=== PATIENT | female | born 1990 | race Caucasian/White ===

== ENCOUNTER 2019-12-08 07:26 | Day surgery (SDC) | payer BC ==
[~2019-12-08 07:26] MED LIST: Lactated Ringers 1,000 ML IV SCH; Lidocaine 1%/Sod Bicarbonate in NS 8.4% 1 ML Syringe IDERM PRN; Sodium Chloride 0.9% 10 ML Syringe FLUSH PRN
[2019-12-08] MEDS ORDERED: Bupivacaine 0.5% 30 ML SDV ONE (08:41)
--- NOTE | 2019-12-08 08:58 | PCM.PREANE ---
Preanesthetic Assessment - Anesthesia/Transfusion/Family Hx Anesthesia History: Prior Anesthesia Without Reaction Family History of Anesthesia Reaction: No Transfusion History: No Prior Transfusion(s) Intubation History: Unknown - Review of Systems General: No Symptoms Pulmonary: No Symptoms (Smoker: less than 1 ppd for 15 years) Cardiovascular: No Symptoms Gastrointestinal: No Symptoms (pelvic pain-12/27), Constipation Neurological: No Symptoms Other: Reports: Easy Bruising, Sinus Problem (allergic rhinitis), Anxiety - Physical Assessment NPO Status Date: 12/08/19 NPO Status Time: 20:00 Vital Signs: Last Vital Signs Temp 36.5 C 12/08/19 07:58 Pulse 74 12/08/19 07:58 Resp 16 12/08/19 07:58 BP 98/69 12/08/19 07:58 Pulse Ox 96 12/08/19 07:58 Height: 1.65 m Weight: 64.4 kg ASA Class: 2 Mental Status: Alert & Oriented x3 Airway Class: Mallampati = 2 Dentition: Reports: Normal Dentition (braces noted upper and lower), Caries Thyro-Mental Finger Breadths: 3 Mouth Opening Finger Breadths: 3 ROM/Head Extension: Full Lungs: Clear to Auscultation, Normal Respiratory Effort Cardiovascular: Regular Rate, Regular Rhythm, No Murmurs - Lab Values: Laboratory Last Values Urine Color Yellow (Yellow) 12/08/19 07:34 Urine Appearance Clear (Clear) 12/08/19 07:34 Urine pH 6.0 (5.0-8.0) 12/08/19 07:34 Ur Specific [place] > or = 1.030 (1.005-1.030) 12/08/19 07:34 Urine Protein Negative (Negative) 12/08/19 07:34 Urine Glucose (UA) Negative (Negative) 12/08/19 07:34 Urine Ketones Negative (Negative) 12/08/19 07:34 Urine Occult Blood Negative (Negative) 12/08/19 07:34 Urine Nitrite Negative (Negative) 12/08/19 07:34 Urine Bilirubin Negative (Negative) 12/08/19 07:34 Urine Urobilinogen 0.2 (0.2-1.0) 12/08/19 07:34 Ur Leukocyte Esterase Negative (Negative) 12/08/19 07:34 Urine RBC Not seen /hpf (0-5) 12/08/19 07:34 Urine WBC Not seen /hpf (0-5) 12/08/19 07:34 Ur Squamous Epith Cells 5-10 /hpf (0-5) H 12/08/19 07:34 Urine Bacteria Few /hpf (FEW) 12/08/19 07:34 Urine Mucus Few /hpf (FEW) 12/08/19 07:34 Urine HCG, Qual Negative (NEGATIVE) 12/08/19 07:34 Above/all labs reviewed and noted and within acceptable ranges to proceed with scheduled procedure. - Allergies Allergies/Adverse Reactions: Allergies Allergy/AdvReac Type Severity Reaction Status Date / Time No Known Allergies Allergy Verified 12/08/19 07:57 - Anesthesia Plan Pre-Op Medication Ordered: None - Acknowledgements Anesthesia Type Planned: General Anesthesia Pt an Appropriate Candidate for the Planned Anesthesia: Yes Alternatives and Risks of Anesthesia Discussed w Pt/Guardian: Yes Pt/Guardian Understands and Agrees with Anesthesia Plan: Yes PreAnesthesia Questionnaire HEENT History: Reports: Allergic Rhinitis, Impaired Vision Cardiovascular History: Reports: None Respiratory History: Reports: None Gastrointestinal History: Reports: None Genitourinary History: Reports: None 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, Musculoskeletal History: Reports: None Neurological History: Reports: None Psychiatric History: Reports: Anxiety Endocrine/Metabolic History: Reports: None Hematologic History: Reports: None Immunologic History: Reports: None Oncologic (Cancer) History: Reports: None Dermatologic History: Reports: Cellulitis - Infectious Disease History Infectious Disease History: Reports: None - Past Surgical History Head Surgeries/Procedures: Reports: None HEENT Surgical History: Reports: Tonsillectomy Respiratory Surgical History: Reports: None GI Surgical History: Reports: Cholecystectomy Female Surgical History: Reports: Hysterectomy Endocrine Surgical History: Reports: None Neurological Surgical History: Reports: None Musculoskeletal Surgical History: Reports: None Oncologic Surgical History: Reports: None Dermatological Surgical History: Reports: None - SUBSTANCE USE Smoking Status *Q: Former Smoker Recreational Drug Use History: No - HOME MEDS Home Medications: Home Meds Citalopram Hydrobromide [Celexa] 20 mg PO DAILY 12/07/19 [History] L.acidoph,Paracasei, B.lactis [Probiotic] 1 cap PO DAILY 12/07/19 [History] Multivitamin [Poly-Vitamin] 1 tab PO DAILY 12/07/19 [History] Vit C/Ascorb Sod/Multivit-Min [Emergen-C 500 mg Chewable Tab] 500 mg PO DAILY 12/07/19 [History] - CURRENT (IN HOUSE) MEDS Current Meds: Current Medications Lactated Ringer's (Ringers, Lactated) 1,000 mls @ 125 mls/hr IV ASDIRECTED DELIA Stop: 12/08/19 23:00 Last Admin: 12/08/19 07:56 Dose: 125 mls/hr Documented by: Lidocaine/Sodium Bicarbonate (Buffered Lidocaine 1% In Ns 8.4%) 0.25 ml IDERM ONETIME PRN PRN Reason: Prior to IV Start Stop: 12/08/19 18:00 Last Admin: 12/08/19 07:56 Dose: 0.25 ml Documented by: Sodium Chloride (Saline Flush) 10 ml FLUSH ASDIRECTED PRN PRN Reason: Keep Vein Open Stop: 12/08/19 18:00 Discontinued Medications Bupivacaine HCl (Marcaine 0.5%) Confirm Administered Dose 30 ml .ROUTE .STK-MED ONE Stop: 12/08/19 08:42
[2019-12-08] MEDS ORDERED: Propofol 200 MG/20 ML SDV ONE (09:13)
[2019-12-08] MEDS ORDERED: fentaNYL 250 MCG/5 ML SDV ONE (09:13)
[2019-12-08] MEDS ORDERED: Midazolam 1 MG/ML 2 ML SDV ONE (09:13)
[2019-12-08] MEDS ORDERED: Lidocaine 1% 4 ML ONE (09:15)
[2019-12-08] MEDS ORDERED: Succinylcholine/Sod PF 100 MG/5 ML SYRINGE IV ONE (09:17)
[2019-12-08] MEDS ORDERED: Ondansetron 4 MG/2 ML SDV ONE (09:50)
[2019-12-08] MEDS ORDERED: Ketorolac 30 MG/ML SDV ONE (10:00)
[2019-12-08] MEDS ORDERED: fentaNYL 100 MCG/2 ML SDV IVPUSH PRN (10:20)
[2019-12-08] MEDS ORDERED: HYDROmorphone 0.5 MG/0.5 ML Syringe IVPUSH PRN (10:20)
[2019-12-08] MEDS ORDERED: Lactated Ringers 1,000 ML ONE (10:27)
--- NOTE | 2019-12-08 10:37 | PCM.POSTAN ---
POST ANESTHESIA ASSESSMENT - MENTAL STATUS Mental Status: Somnolent - VITAL SIGNS Vital Signs: Last Vital Signs Temp 97.3 F 12/08/19 10:28 Pulse 89 12/08/19 10:28 Resp 17 12/08/19 10:28 BP 93/56 L 12/08/19 10:28 Pulse Ox 95 12/08/19 10:28 - RESPIRATORY Respiratory Status: Respiratory Rate WNL, Airway Patent (oral a/w #90), O2 Saturation Stable, Supplemental Oxygen - CARDIOVASCULAR CV Status: Pulse Rate WNL, Blood Pressure Stable - GASTROINTESTINAL GI Status: No Symptoms - PAIN Pain Score: 0 - POST OP HYDRATION Hydration Status: Adequate & Stable
--- NOTE | 2019-12-08 10:40 | PCM.OPNOTE ---
- General Post-Op/Procedure Note Date of Surgery/Procedure: 12/08/19 Operative Procedure(s): Laparoscopy with biopsies on the ovary and pelvic peritoneum Findings: Grossly normal-appearing peritoneum with one area near the left broad ligament that was biopsied. Normal-appearing peritoneum on the anterior, lateral and posterior valdes of the pelvis. Left ovary with multiple small clear cystic structure suspected to be endometriosis. Right ovary grossly normal in appearance. Normal-appearing appendix. Grossly normal-appearing liver and upper abdomen. Pre Op Diagnosis: Female pelvic pain, endometriosis and history of ovarian cysts Post-Op Diagnosis: Same Anesthesia Technique: General ET Tube Primary Surgeon: Stef Bernardo Anesthesia Provider: Alban Arndt Fruit Checker: Manish Haas Fruit Checker: Sol Juarez ([place] Student) Reason Fruit Checker Was Necessary: Patient safety and reduction of morbidity and mortality Role of Fruit Checker: Use of laparoscopic instruments during the case. Pathology: Left pelvic sidewall peritoneal biopsy, right ovary biopsy, left ovary biopsy Fluid Replacement, Intraop: 1,000 Output, Urine Amount: 125 EBL in mLs: 10 Complications: None Condition: Good Free Text/Narrative:: The patient was seen in the preoperative holding area and risks, benefits, indications, and alternatives of the procedure were reviewed with the patient and she desired to proceed with a diagnostic laparoscopy, fulguration of endometriosis, possible lysis of adhesions, possible ovarian cystectomy and possible oophorectomy. Consents were reviewed. The patient was taken back to the OR and given general anesthesia with an endotracheal tube which was placed without difficulty. She was placed in dorsal supine position. A Friedman catheter was placed without difficulty. She was prepped and draped in normal sterile fashion. Attention was then turned to her umbilicus where a previous laparoscopic scar was visualized. This was injected with 0.5% Marcaine and a 5 mm stab incision was made with a scalpel and a Veress needle was then inserted through the incision. The gas was turned on, with an opening pressure of 2 mmHg. Pneumoperitoneum was continued until 13 mmHg pressure. A 5 mm trocar was then inserted under direct visualization through the incision without difficulty. A global view of the abdomen was taken and noted to be overall free of adhesions. Attention was then turned to the left lower quadrant area where she had a previous laparoscopy scar. This area was injected with 0.5% Marcaine and a 5 mm stab incision was made with a scalpel. A 5 mm trocar was then inserted under direct visualization with the laparoscope. A global view of the abdomen was then taken and noted to be overall normal in appearance. The intestines, visualized portions of the liver and upper abdomen were overall normal appearance. The pelvis was then closely inspected for any areas of endometriosis and was noted to be free of any gunpowder lesions or clear endometriosis cysts. The left broad ligament area had a small abnormality that was biopsied and sent for pathology. The left ovary was inspected and noted to have clear endometriosis type cysts present near the base of the ovary at the IP ligament junction. The cysts were biopsied as well and sent for pathology. The right ovary was inspected and noted to be normal in appearance without any evidence of endometriosis. There was a small area with protrusion from the ovary that was biopsied and sent for pathology as well. The biopsy sites were hemostatic after the biopsy. The abdomen was then further explored and the appendix was visualized and appeared to be normal. The remainder of the abdomen was felt to be overall normal and the case was completed at this time. The gas was then evacuated from the peritoneum and trocars removed. These were closed using 4-0 Monocryl suture and Dermabond. The case was completed at this time and all instruments were removed. The Friedman catheter was discontinued at this time. The patient was awoken from general anesthesia and taken to the PACU for recovery in stable condition. She will be discharged to home once she is able to meet all postoperative milestones including tolerating small amount of oral intake and liquids, ambulate without difficulty, her pain controlled with oral medications and able to void without difficulty. She will follow-up in the clinic in 2 weeks or earlier as needed. Sponge, lap, needle, and instrument counts were correct x 2.
[2019-12-08] MEDS ORDERED: Acetaminophen/oxyCODONE 325-5 MG Tab PO SCH (11:30)
--- NOTE | 2019-12-08 12:12 | PCM48HPAN ---
Post Anesthesia Note - EVALUATION WITHIN 48HRS OF ANESTHETIC Vital Signs in Normal Range: Yes Patient Participated in Evaluation: Yes Respiratory Function Stable: Yes Airway Patent: Yes Cardiovascular Function Stable: Yes Hydration Status Stable: Yes Pain Control Satisfactory: Yes Nausea and Vomiting Control Satisfactory: Yes Mental Status Recovered: Yes Vital Signs: Last Vital Signs Temp 97.5 F 12/08/19 11:30 Pulse 96 12/08/19 11:30 Resp 18 12/08/19 11:30 BP 94/77 12/08/19 11:30 Pulse Ox 93 L 12/08/19 11:30
== END 2019-12-08 13:19 | disposition home or self-care (01) ==
LOC: JD.SDS 07:26
PROVIDERS: ATTEND Obstetrics & Gynecology
DX: N83.8 Other noninflammatory disorders of ovary, fallopian tube and broad ligament (principal); N80.9 Endometriosis, unspecified; F17.210 Nicotine dependence, cigarettes, uncomplicated; Z79.899 Other long term (current) drug therapy
CPT/HCPCS: 49321; 81001; 81025; A9270; J0330; J1885; J2001; J2250; J2405; J2704; J3010; J3490; J7120; 00840

== ENCOUNTER 2019-12-20 18:03 | Emergency (ER) | payer BC ==
--- NOTE | 2019-12-20 18:20 | EDM.PDOC ---
ED HPI GENERAL MEDICAL PROBLEM - General Chief Complaint: Lower Extremity Injury/Pain Stated Complaint: L FOOT INJURY Time Seen by Provider: 12/20/19 18:15 Source of Information: Reports: Patient History Limitations: Reports: No Limitations - History of Present Illness INITIAL COMMENTS - FREE TEXT/NARRATIVE: The patient presents with left foot pain. She admits to being intoxicated last night and falling down some stairs. She hurt her left foot only. She did not hit her head or hurt her neck. Onset: Sudden Duration: Day(s): (Last night) Quality: Reports: Sharp Severity: Moderate Improves with: Reports: Immobilization Worsens with: Reports: Movement Context: Reports: Trauma (Fell down some steps) Associated Symptoms: Reports: No Other Symptoms Left Foot Pain Score (Numeric/FACES): 9 - Related Data Allergies Allergy/AdvReac Type Severity Reaction Status Date / Time No Known Allergies Allergy Verified 12/20/19 18:16 Home Meds: Home Meds Citalopram Hydrobromide [Celexa] 10 mg PO BEDTIME 12/07/19 [History] Multivitamin [Poly-Vitamin] 1 tab PO DAILY 12/07/19 [History] Past Medical History HEENT History: Reports: Allergic Rhinitis, Impaired Vision Cardiovascular History: Reports: None Respiratory History: Reports: None Gastrointestinal History: Reports: None Genitourinary History: Reports: None 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, Musculoskeletal History: Reports: None Neurological History: Reports: None Psychiatric History: Reports: Anxiety Endocrine/Metabolic History: Reports: None Hematologic History: Reports: None Immunologic History: Reports: None Oncologic (Cancer) History: Reports: None Dermatologic History: Reports: Cellulitis - Infectious Disease History Infectious Disease History: Reports: None - Past Surgical History Head Surgeries/Procedures: Reports: None HEENT Surgical History: Reports: Tonsillectomy Respiratory Surgical History: Reports: None GI Surgical History: Reports: Cholecystectomy Female Surgical History: Reports: Hysterectomy Endocrine Surgical History: Reports: None Neurological Surgical History: Reports: None Musculoskeletal Surgical History: Reports: None Oncologic Surgical History: Reports: None Dermatological Surgical History: Reports: None Social & Family History - Caffeine Use Caffeine Use: Reports: Soda Review of Systems - Review of Systems Review Of Systems: See Below Constitutional: Reports: No Symptoms Eyes: Reports: No Symptoms Ears: Reports: No Symptoms Nose: Reports: No Symptoms Mouth/Throat: Reports: No Symptoms Respiratory: Reports: No Symptoms Cardiovascular: Reports: No Symptoms GI/Abdominal: Reports: No Symptoms Musculoskeletal: Reports: Other (Left foot swelling and pain) ED EXAM, GENERAL - Physical Exam Exam: See Below Exam Limited By: No Limitations General Appearance: Alert, No Apparent Distress Ears: Normal External Exam Nose: Normal Inspection Head: Atraumatic, Normocephalic Neck: Normal Inspection Respiratory/Chest: No Respiratory Distress Extremities: Other (Edema and pain upon palpation to the left foot) Course - Vital Signs Last Recorded V/S: Last Vital Signs Temp 97 F 12/20/19 18:14 Pulse 81 12/20/19 18:14 Resp 16 12/20/19 18:14 BP 100/74 12/20/19 18:14 Pulse Ox 97 12/20/19 18:14 - Orders/Labs/Meds Orders: Active Orders 24 hr Category Date Time Status Durable Medical Equipment for Discharge [DME for Oth 12/20/19 19:20 Ordered Discharge] [COMM] Stat - Re-Assessments/Exams Free Text/Narrative Re-Assessment/Exam: 12/20/19 18:20 I have ordered an x-ray of her left foot. 12/20/19 19:22 The x-ray shows soft tissue swelling. No definite bony abnormality is seen. She cannot walk on it so I will get her a walking boot and crutches. Departure - Departure Time of Disposition: 19:25 Disposition: Home, Self-Care 01 Condition: Good Clinical Impression: Sprain of left foot Qualifiers: Encounter type: initial encounter Qualified Code(s): S93.602A - Unspecified sprain of left foot, initial encounter - Discharge Information *PRESCRIPTION DRUG MONITORING PROGRAM REVIEWED*: Not Applicable *COPY OF PRESCRIPTION DRUG MONITORING REPORT IN PATIENT MINDA: Not Applicable Referrals: PCP,None [Primary Care Provider] - Wily Little MD [Physician] - 1 Week Forms: ED Department Discharge Additional Instructions: Ice your foot for 15 minutes 3 times per day for 2 days. Elevate your foot as much as you can for 2 days. Take tylenol or motrin for pain. If that does not help, try the hydrocodone. Follow up with Dr Little. Please return if you are worse. Sepsis Event Note (ED) - Evaluation Sepsis Screening Result: No Definite Risk - Focused Exam Vital Signs: Vital Signs Temp Pulse Resp BP Pulse Ox 12/20/19 18:14 97 F 81 16 100/74 97 - My Orders Last 24 Hours: My Active Orders 12/20/19 19:20 Durable Medical Equipment for Discharge [DME for Discharge] [COMM] Stat - Assessment/Plan Last 24 Hours: My Active Orders 12/20/19 19:20 Durable Medical Equipment for Discharge [DME for Discharge] [COMM] Stat
--- NOTE | 2019-12-20 19:15 | CR ---
Left foot: 3 views left foot were obtained. Comparison: No previous left foot study. Soft tissue swelling is identified. Minimal bony density is noted off the cuboid bone which appears old. No acute fracture, dislocation or other bony abnormalities appreciated. Impression: 1. Soft tissue swelling. No definite bony abnormality is seen. If patient's symptoms are sufficient to warrant further evaluation, foot CT could be considered. Diagnostic code #3 This report was dictated in MDT
== END 2019-12-20 19:55 | disposition home or self-care (01) ==
LOC: JD.ED 18:03
DX: S93.602A Unspecified sprain of left foot, initial encounter (principal); Z79.899 Other long term (current) drug therapy; F41.9 Anxiety disorder, unspecified; W10.9XXA Fall (on) (from) unspecified stairs and steps, initial encounter
CPT/HCPCS: 73630-26-LT; 73630-LT; 99282; 99283-25

== ENCOUNTER 2020-01-29 19:30 | Emergency (ER) | payer BC ==
--- NOTE | 2020-01-29 20:10 | EDM.PDOC ---
ED HPI GENERAL MEDICAL PROBLEM - General Chief Complaint: Gastrointestinal Problem Stated Complaint: BLOOD IN STOOL Time Seen by Provider: 01/29/20 19:51 Source of Information: Reports: Patient History Limitations: Reports: No Limitations - History of Present Illness INITIAL COMMENTS - FREE TEXT/NARRATIVE: This is a 29-year-old female. Onset for the past 3 days with dark looking stools. She has not taken Pepto-Bismol. Then she is also had some bright red blood with her stool for the last couple of days as well. She pains of lower abdominal cramping and pain and it appears that the left side is worse than the right. She also complains of rectal pressure. Whenever she poops she says it toribio around her anus. She has been having small stools which is unusual for her but she does not have to strain to go. She has been taking MiraLAX 1-2 times a week. She denies any nausea and vomiting denies any fever. She has had a hysterectomy 1 year ago as well as a cholecystectomy. She still has her ovaries and she has a history of endometriosis and ovarian cyst. Due to the blood in her stool she comes to the ER for evaluation. Bilateral Lower Abdomen Pain Score (Numeric/FACES): 8 - Related Data Allergies Allergy/AdvReac Type Severity Reaction Status Date / Time No Known Allergies Allergy Verified 01/29/20 19:45 Home Meds: Home Meds Citalopram Hydrobromide [Celexa] 20 mg PO BEDTIME 12/07/19 [History] Multivitamin [Poly-Vitamin] 1 tab PO DAILY 12/07/19 [History] Past Medical History HEENT History: Reports: Allergic Rhinitis, Impaired Vision Other HEENT History: Wears glasses Cardiovascular History: Reports: None Respiratory History: Reports: None Gastrointestinal History: Reports: None Genitourinary History: Reports: None 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, Musculoskeletal History: Reports: None Neurological History: Reports: None Psychiatric History: Reports: Anxiety Endocrine/Metabolic History: Reports: None Hematologic History: Reports: Anemia Immunologic History: Reports: None Oncologic (Cancer) History: Reports: None Dermatologic History: Reports: Cellulitis - Infectious Disease History Infectious Disease History: Reports: None - Past Surgical History Head Surgeries/Procedures: Reports: None HEENT Surgical History: Reports: Adenoidectomy, Tonsillectomy Respiratory Surgical History: Reports: None GI Surgical History: Reports: Cholecystectomy Female Surgical History: Reports: Hysterectomy Endocrine Surgical History: Reports: None Neurological Surgical History: Reports: None Musculoskeletal Surgical History: Reports: None Oncologic Surgical History: Reports: None Dermatological Surgical History: Reports: None Social & Family History - Tobacco Use Smoking Status *Q: Current Every Day Smoker Years of Tobacco use: 10 Packs/Tins Daily: 0.5 - Caffeine Use Caffeine Use: Reports: Soda - Recreational Drug Use Recreational Drug Use: No ED ROS GENERAL - Review of Systems Review Of Systems: See Below Constitutional: Denies: Fever, Chills HEENT: Reports: No Symptoms Respiratory: Reports: No Symptoms Cardiovascular: Reports: No Symptoms Endocrine: Reports: No Symptoms GI/Abdominal: Reports: Abdominal Pain, Black Stool, Bloody Stool. Denies: Constipation, Diarrhea, Nausea, Vomiting : Denies: Dysuria Musculoskeletal: Reports: No Symptoms Skin: Reports: No Symptoms Neurological: Reports: No Symptoms Psychiatric: Reports: No Symptoms Hematologic/Lymphatic: Reports: No Symptoms ED EXAM, GI/ABD - Physical Exam Exam: See Below Exam Limited By: No Limitations General Appearance: Alert, WD/WN, No Apparent Distress Eyes: Bilateral: Normal Appearance Ears: Normal External Exam Nose: Normal Inspection Throat/Mouth: Normal Voice, No Airway Compromise Head: Normocephalic Neck: Supple Respiratory/Chest: No Respiratory Distress, Lungs Clear, Normal Breath Sounds Cardiovascular: Regular Rate, Rhythm, No Murmur GI/Abdominal Exam: Soft, Other (Bowel sounds are positive though they are decreased. She is tender in the lower abdomen but not the upper abdomen. In the lower abdomen she is very tender in the left lower quadrant and not so tender in the right lower quadrant. She does not have any rebound and there is no obvious guarding.) Rectal (Female) Exam: Normal Exam, Normal Rectal Tone, Heme - Stool, Other (Not see any obvious abnormalities of the rectum and there is no hemorrhoidal tags noted. I did obtain a small amount of stool that was heme-negative.). No: Black Stool, Bloody Stool, Hemorrhoids Back Exam: Full Range of Motion Extremities: Normal Inspection, Normal Range of Motion Neurological: Alert, Oriented Psychiatric: Normal Affect, Normal Mood Skin Exam: Warm, Dry Course - Vital Signs Last Recorded V/S: Last Vital Signs Temp 97.4 F 01/29/20 19:45 Pulse 74 01/29/20 19:45 Resp 14 01/29/20 19:45 BP 124/90 01/29/20 19:45 Pulse Ox 99 01/29/20 19:45 - Orders/Labs/Meds Orders: Active Orders 24 hr Category Date Time Status Sodium Chloride 0.9% [Normal Saline] 1,000 ml Med 01/29/20 20:15 Active IV ASDIRECTED Medication Orders Sodium Chloride (Normal Saline) 1,000 mls @ 500 mls/hr IV ASDIRECTED DELIA Last Admin: 01/29/20 20:28 Dose: 500 mls/hr Documented by: CHRIS Labs: Laboratory Tests 01/29/20 01/29/20 01/29/20 Range/Units 20:35 20:35 20:35 WBC 7.48 (3.98-10.04) K/mm3 RBC 4.71 (3.98-5.22) M/mm3 Hgb 15.3 (11.2-15.7) gm/dl Hct 43.4 (34.1-44.9) % MCV 92.1 (79.4-94.8) fl MCH 32.5 H (25.6-32.2) pg MCHC 35.3 (32.2-35.5) g/dl RDW Std Deviation 41.0 (36.4-46.3) fL Plt Count 225 (182-369) K/mm3 MPV 10.2 (9.4-12.3) fl Neut % (Auto) 56.5 (34.0-71.1) % Lymph % (Auto) 34.6 (19.3-51.7) % [place] % (Auto) 7.5 (4.7-12.5) % Eos % (Auto) 0.9 (0.7-5.8) Baso % (Auto) 0.4 (0.1-1.2) % Neut # (Auto) 4.22 (1.56-6.13) K/mm3 Lymph # (Auto) 2.59 (1.18-3.74) K/mm3 [place] # (Auto) 0.56 H (0.24-0.36) K/mm3 Eos # (Auto) 0.07 (0.04-0.36) K/mm3 Baso # (Auto) 0.03 (0.01-0.08) K/mm3 Sodium 138 (136-145) mEq/L Potassium 3.7 (3.5-5.1) mEq/L Chloride 100 (98-107) mEq/L Carbon Dioxide 29 (21-32) mEq/L Anion Gap 12.7 (5-15) BUN 11 (7-18) mg/dL Creatinine 0.7 (0.55-1.02) mg/dL Est Cr Clr Drug Dosing 101.48 mL/min Estimated GFR (MDRD) > 60 (>60) mL/min BUN/Creatinine Ratio 15.7 (14-18) Glucose 93 (74-106) mg/dL Calcium 9.1 (8.5-10.1) mg/dL Total Bilirubin 0.3 (0.2-1.0) mg/dL AST 15 (15-37) U/L ALT 26 (14-59) U/L Alkaline Phosphatase 36 L (46-116) U/L C-Reactive Protein 0.4 (<1.0) mg/dL Total Protein 7.6 (6.4-8.2) g/dl Albumin 4.2 (3.4-5.0) g/dl Globulin 3.4 gm/dL Albumin/Globulin Ratio 1.2 (1-2) Lipase 131 (73-393) U/L Urine Color Yellow (Yellow) Urine Appearance Clear (Clear) Urine pH 6.5 (5.0-8.0) Ur Specific [place] 1.015 (1.005-1.030) Urine Protein Negative (Negative) Urine Glucose (UA) Negative (Negative) Urine Ketones Negative (Negative) Urine Occult Blood Trace-intact H (Negative) Urine Nitrite Negative (Negative) Urine Bilirubin Negative (Negative) Urine Urobilinogen 0.2 (0.2-1.0) Ur Leukocyte Esterase Negative (Negative) Urine RBC 0-5 (0-5) /hpf Urine WBC 0-5 (0-5) /hpf Ur Squamous Epith Cells 5-10 H (0-5) /hpf Urine Bacteria Few (FEW) /hpf Urine Mucus Few (FEW) /hpf Meds: Medications Generic Name Dose Route Start Last Admin Trade Name Freq PRN Reason Stop Dose Admin Sodium Chloride 1,000 mls @ 500 mls/hr 01/29/20 20:15 01/29/20 20:28 Normal Saline IV 500 mls/hr ASDIRECTED DELIA Administration Discontinued Medications Generic Name Dose Route Start Last Admin Trade Name Araseli PRN Reason Stop Dose Admin Diatrizoate Meglum/Diatrizoate Sod 120 ml 01/29/20 21:53 01/29/20 22:05 Gastrografin 37% PO 01/29/20 21:54 120 ml ONETIME ONE Administration Iopamidol 100 ml 01/29/20 21:53 01/29/20 22:05 Isovue-300 (61%) IVPUSH 01/29/20 21:54 100 ml ONETIME ONE Administration Sodium Chloride 10 ml 01/29/20 21:53 01/29/20 22:05 Saline Flush FLUSH 01/29/20 21:54 10 ml ONETIME ONE Administration - Radiology Interpretation Free Text/Narrative:: CT abdomen and pelvis shows a increased stool within the colon. She also has a atrophied left kidney but is still enhances and is functioning there is no other acute abnormalities of the CT scan noted. - Re-Assessments/Exams Free Text/Narrative Re-Assessment/Exam: 01/29/20 22:37 Spoke to the patient regarding her CT scan results. Her white count is normal her C-reactive protein is normal her lipase is normal and her urine is normal. I believe that she has constipation and possibly irritation of the rectum and internal hemorrhoids. Denies any anal sex. Departure - Departure Time of Disposition: 22:38 Disposition: Home, Self-Care 01 Condition: Fair Clinical Impression: Constipation by delayed colonic transit, Blood in stool - Discharge Information *PRESCRIPTION DRUG MONITORING PROGRAM REVIEWED*: Not Applicable *COPY OF PRESCRIPTION DRUG MONITORING REPORT IN PATIENT MINDA: Not Applicable Instructions: Constipation, Adult Referrals: Lolis Irby MD [Ordering Only Provider] - Forms: ED Department Discharge Additional Instructions: The contrast that you drank in the ER should help you to have some bowel movements. If you do not have good bowel movements within the next 24 hours take the Mag Citrate and drink one half of it, if there is no results in 12 hours after drinking a half bottle drink then drink the rest of the half, follow-up with Dr. Irby by calling her office on Saturday for reevaluation and possible referral for colonoscopy, return to the ER if needed Sepsis Event Note (ED) - Evaluation Sepsis Screening Result: No Definite Risk - Focused Exam Vital Signs: Vital Signs Temp Pulse Resp BP Pulse Ox 01/29/20 19:45 97.4 F 74 14 124/90 99 - My Orders Last 24 Hours: My Active Orders 01/29/20 20:15 Sodium Chloride 0.9% [Normal Saline] 1,000 ml IV ASDIRECTED - Assessment/Plan Last 24 Hours: My Active Orders 01/29/20 20:15 Sodium Chloride 0.9% [Normal Saline] 1,000 ml IV ASDIRECTED
[2020-01-29] MEDS ORDERED: Sodium Chloride 0.9% 1,000 ML IV SCH (20:15)
[2020-01-29] MEDS ORDERED: Iopamidol 612 MG/ML 100 ML Bottle IVPUSH ONE (21:53)
[2020-01-29] MEDS ORDERED: Sodium Chloride 0.9% 10 ML Syringe FLUSH ONE (21:53)
[2020-01-29] MEDS ORDERED: Diatrizoate Meglumine/Diatrizoate Sodium 37% 120 ML Bottle PO ONE (21:53)
--- NOTE | 2020-01-29 22:10 | CT ---
CT abdomen and pelvis Technique: Multiple axial sections were obtained from above the dome of the diaphragm inferiorly through the pubic symphysis. Intravenous and oral contrast has been given. Delayed images were obtained through the bladder. Comparison: No previous study. Findings: Visualized lung bases show nothing acute. Liver contains no focal abnormality. Spleen shows a low density lesion with slight peripheral calcifications measuring 3.4 cm which is believed to be benign. Adrenal glands show no nodule. Left kidney is much smaller than the right kidney compatible with diffuse atrophy. This is likely long-standing. Left kidney still show some enhancement. Right kidney appears normal. Surgical clips are seen from prior cholecystectomy. Pancreas appears within normal limits. Aorta shows no aneurysm. No retroperitoneal adenopathy or mesenteric abnormalities are seen. No pelvic mass or adenopathy is seen. No free fluid or inflammatory changes appreciated. Increased stool noted throughout the colon. Appendix is not visualized with certainty. Delayed images shows contrast within the bladder. Bone window settings were reviewed which shows no acute osseous finding. Small fat-containing umbilical hernia is noted. Impression: 1. Low density lesion within the spleen believed to be benign. 2. Increased stool within the colon. 3. Atrophied left kidney showing continued enhancement and functioning. This finding is most likely long-standing. 4. No additional abnormality is appreciated on CT study of the abdomen and pelvis. Diagnostic code #2 This report was dictated in MDT
[2020-01-29] MEDS ORDERED: Magnesium Citrate Solution 296 ML Bottle PO ONE (22:40)
== END 2020-01-29 22:51 | disposition home or self-care (01) ==
LOC: JD.ED 19:30
DX: K59.01 Slow transit constipation (principal); K92.1 Melena; F17.210 Nicotine dependence, cigarettes, uncomplicated; F41.9 Anxiety disorder, unspecified; Z79.899 Other long term (current) drug therapy
CPT/HCPCS: 36415; 74177; 80053; 81001; 83690; 85025; 86140; 96360; 96361; 99284; A9270; J7030; Q9963; Q9967; 99283